=== PATIENT | male | born 1960 | race African-American/Black ===

== ENCOUNTER 2018-02-03 19:51 | Emergency (ER) | payer OTHER ==
[~2018-02-03] VITALS: Ht 182.9 cm; Wt 102.0 kg
[2018-02-03] MEDS ORDERED: LIDOCAINE HCL 1% 20ML VIAL (Pyxis) INJ MC ONE (22:00)
[2018-02-03] MEDS ORDERED: TETANUS, DIPHTHERIA, PERTUSSIS VAC/PF 0.5ML (>7YR OLD) IM ONE (22:00)
[2018-02-03 23:45] VITALS: BP 138/89
== END 2018-02-04 00:03 | disposition home or self-care (01) ==
LOC: ER 19:51
DX: S01.412A Laceration without foreign body of left cheek and temporomandibular area, initial encounter (principal); X99.1XXA Assault by knife, initial encounter; Y93.89 Activity, other specified; Y92.89 Other specified places as the place of occurrence of the external cause; Z23 Encounter for immunization; F12.10 Cannabis abuse, uncomplicated; F10.10 Alcohol abuse, uncomplicated; Y90.9 Presence of alcohol in blood, level not specified; F17.210 Nicotine dependence, cigarettes, uncomplicated
CPT/HCPCS: 12011; 90471; 90715; 99283; J3490; Z7610

== ENCOUNTER 2018-02-11 21:54 | Emergency (ER) | payer OTHER ==
[~2018-02-11] VITALS: Ht 182.9 cm; Wt 104.0 kg
[2018-02-12 02:15] VITALS: BP 134/74
== END 2018-02-12 02:51 | disposition home or self-care (01) ==
LOC: ER 21:54
DX: S01.81XD Laceration without foreign body of other part of head, subsequent encounter (principal); F12.10 Cannabis abuse, uncomplicated; X58.XXXA Exposure to other specified factors, initial encounter; Y93.89 Activity, other specified; Y99.8 Other external cause status; Y92.89 Other specified places as the place of occurrence of the external cause
CPT/HCPCS: 99281